=== PATIENT | female | born 1975 | race Caucasian/White ===

== ENCOUNTER 2024-01-13 14:22 | Outpatient (AMB) | payer OTHER, SELFPAY ==
--- NOTE | 2024-01-13 14:32 | A.OFFVIS_ITS ---
Vital Signs 01/13/24 14:33 Height 5 ft 9 in Weight 319 lb 10.724 oz BMI 47.2 BP 130/80 Blood Pressure Location Rt brachial Position Sitting Pulse 93 Pulse Source Pulse Oximeter Intake Visit Reasons: Thyroid cancer-confirmed Intake Note: New Patient presents today to established treatment for Thyroid cancer. 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 She was followed up to 2014 with negative neck ultrasounds and undetectable thyroglobulin. She is currently on levothyroxine 300 mcg q.d. [facility] Medical History (Updated 01/13/24 @ 14:55 by GEOFF Infante) Hx of hyperlipidemia Hx of migraines Hx of essential hypertension Hx of diabetes mellitus Hurthle cell carcinoma of thyroid Surgical History (Updated 01/13/24 @ 14:35 by GEOFF Infante) Hx of bilateral breast reduction surgery Hx of partial thyroidectomy Family History (Updated 01/13/24 @ 14:41 by GEOFF Infante) Father No problems noted. Mother No problems noted. Maternal Grandfather Heart disease Social History (Updated 01/13/24 @ 14:35 by GEOFF Infante) Alcohol intake: current Alcohol intake frequency: holidays/special occasions only Patient Tobacco Use Status: Former Tobacco user Physical Exam Vital Signs: Last Vital Signs Pulse 93 01/13/24 14:33 BP 130/80 01/13/24 14:33 BMI result Body Mass Index 47.2 Const Other: Healed scar status post thyroidectomy. There is no cervical adenopathy palpated Assessment & Plan Assessment & Plan (1) Hurthle cell carcinoma of thyroid: Code(s): C73 - Malignant neoplasm of thyroid gland Category: Medical Plan: This is a 48-year-old white female history of Hurthle cell carcinoma of the thyroid status post total thyroidectomy with iodine 131 ablation previously with negative neck ultrasounds and undetectable thyroglobulin. Plan is to recheck TSH, free T4 along with thyroglobulin. Will also have patient follow up with Dr. Guan will be coming to this practice in February 2024 is expert thyroid ultrasound to perform a neck ultrasound Orders: Orders Free T4 (Free Thyroxine) Today C73 - Malignant neoplasm of thyroid gland Thyroid Stimulating Hormone Today C73 - Malignant neoplasm of thyroid gland Thyroglobulin Tumor Marker Today C73 - Malignant neoplasm of thyroid gland Coding Level of Care Code Est Pt Level 3 (12675) Diagnoses Hurthle cell carcinoma of thyroid C73
[2024-01-13 14:33] VITALS: BP 130/80; PULSE 93; BMI 47.2
== END 2024-01-13 15:10 | disposition home or self-care (01) ==
PROVIDERS: PCP Internal Medicine; Visit Provider Internal Medicine Endocrinology, Diabetes & Metabolism
DX: C73 Malignant neoplasm of thyroid gland (principal)
CPT/HCPCS: 99213

== ENCOUNTER → 2024-01-13 14:22 | Outpatient (BNVA) | payer OTHER, SELFPAY | PROVIDERS: PCP Internal Medicine; Visit Provider Internal Medicine Endocrinology, Diabetes & Metabolism ==

== ENCOUNTER 2024-01-18 11:27 | Outpatient (REF) | payer OTHER, SELFPAY ==
[2024-01-18 13:46] LABS: Free T4 (Free Thyroxine) 1.32 ng/dL (0.71-1.85); Thyroid Stimulating Hormone 0.03 uIU/mL (0.32-4.0)
[2024-01-21 07:14] LABS: Thyroglobulin Antibody <1 IU/mL (<=1); Thyroglobulin Level <0.1 ng/mL
== END 2024-01-18 11:28 | disposition home or self-care (01) ==
LOC: HO.HMGCLDS 11:27
PROVIDERS: PCP Internal Medicine; Visit Provider Internal Medicine Endocrinology, Diabetes & Metabolism
DX: C73 Malignant neoplasm of thyroid gland (principal)
CPT/HCPCS: 36415; 84432; 84439; 84443; 86800

== ENCOUNTER 2024-05-13 16:28 | Outpatient (REF) | payer OTHER, SELFPAY ==
[2024-05-13 20:31] LABS: Free T4 (Free Thyroxine) 1.33 ng/dL (0.71-1.85); Thyroid Stimulating Hormone 2.17 uIU/mL (0.32-4.0)
== END 2024-05-13 16:29 | disposition home or self-care (01) ==
LOC: HO.LAB 16:28
PROVIDERS: PCP Internal Medicine; Visit Provider Internal Medicine Endocrinology, Diabetes & Metabolism
DX: C73 Malignant neoplasm of thyroid gland (principal)
CPT/HCPCS: 36415; 84439; 84443

== ENCOUNTER 2024-05-15 07:56 | Outpatient (AMB) | payer OTHER, SELFPAY ==
[2024-05-15 07:59] VITALS: BP 124/82; PULSE 69; BMI 48.9
--- NOTE | 2024-05-15 07:59 | A.OFFVIS_ITS ---
Vital Signs 3 05/15/24 07:59 Height 5 ft 9 in Weight 331 lb 2.149 oz BMI 48.9 BP 124/82 Blood Pressure Location Rt brachial Position Sitting Pulse 69 Pulse Source Pulse Oximeter Intake Visit Reasons: f/u Thyroid Cancer-conf Intake Note: Patient present today for Thyroid Cancer follow up visit. Hand Brush Filler Required: No Accompanied by: Self / Same As Patient Allergies No Known Allergies Allergy (Verified 05/15/24 08:02) Medication List - Last Reconciled 05/15/24 by Liz Guan MD empagliflozin (Jardiance) 25 mg PO DAILY levonorgestrel (Mirena) intrauterine levothyroxine 50 mcg PO DAILY levothyroxine 200 mcg PO DAILY losartan 100 mg PO DAILY meclizine 25 mg PO DAILY PRN omeprazole magnesium (Prilosec OTC) 20 mg PO DAILY sumatriptan succinate 100 mg PO Q2-4H PRN tirzepatide (Mounjaro) 5 mg subcut QWEEK HPI Comments Details: 48-year-old female coming in today follow up ofHurthle cell carcinoma diagnosed in 2005 status post total thyroidectomy, 100 mCi of I 131 radioactive iodine treatment in 2005. Very little initial information available to determine initial TOMA risk would at least intermediate risk of recurrence based on Hurthle cell pathology and AJCC stage I, however per chart review most recently has been TOMA excellent response to therapy. 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 Status post total thyroidectomy, diagnosed with Hurthle cell carcinoma 4 X 4 X 3 cm, status post 100 mCi of I 131 radioactive iodine treatment 2007: 01/16/2007: Whole-body scan with no abnormal focus noted 2008: CT soft tissue neck: Several abnormal appearing cervical lymph nodes, largest left jugulodigastric region measuring 60 next 9 mm 2013: Labs TSH 20.87, free T4 1.13, TG less than 1, TG antibody undetectable July 2013: Ultrasound neck showed no abnormal lymph nodes, showed multiple normal looking lymph nodes bilaterally. 2014: Ultrasound neck: Showed normal lymph nodes She was on levothyroxine 300 mcg daily up until 01/22/2024, when TSH noted to be 0.03 with free T4 of 1.34. Thyroglobulin less than 0.1, with TG antibody undetectable. Levothyroxine was reduced to 250 mcg subsequently. Currenlty on levothyroxine 250 mcg daily ( 200 plus 50 mcg pills), taking it appropriately No palpitations, no tremors . Recently a bit more constipated. Now reporting somewhat decreased energy. Has lost 6 lbs over April 2024 but started Mounajaro 2.5 mg weekly dose and plan to titrate up to 5 mg weekly in May 2024 No compressive symptoms Physical exam General: sitting comfortably in no acute distress HEENT: normocephalic/atraumatic, moist oral mucosa Neck: supple, symmetrical, palpable 0.[address] , no other lymph nodes or masses Cardiac: normal heart sounds Pulm: normal breath sounds B/L, no added breath sounds Abd: not distended, no tenderness Extremities: no edema, no signs of myxedema Laboratory Tests 01/18/24 05/13/24 11:32 16:42 TSH 0.03 L 2.17 Free T4 1.32 1.33 Thyroglobulin <0.1 Thyroglobulin Antibody <1 PFSH Medical History (Updated 05/15/24 @ 08:50 by Liz Guan MD) Hypothyroidism Hx of hyperlipidemia Hx of migraines Hx of essential hypertension Hx of diabetes mellitus Hurthle cell carcinoma of thyroid Surgical History (Updated 01/13/24 @ 14:35 by GEOFF Infante) Hx of bilateral breast reduction surgery Hx of partial thyroidectomy Family History Father No problems noted. Mother No problems noted. Maternal Grandfather Heart disease Social History (Updated 01/13/24 @ 14:35 by GEOFF Infante) Alcohol intake: current Alcohol intake frequency: holidays/special occasions only Patient Tobacco Use Status: Former Tobacco user Assessment & Plan Assessment & Plan (1) Hurthle cell carcinoma of thyroid: Code(s): C73 - Malignant neoplasm of thyroid gland Category: Medical Plan: 48-year-old female coming in today follow up of Hurthle cell carcinoma 4 cm diagnosed in 2005 status post total thyroidectomy, 100 mCi of I 131 radioactive iodine treatment in 2005. Very little initial information available with no pathology report in the system to determine initial TOMA risk would at least be intermediate risk of recurrence based on Hurthle cell pathology and AJCC stage I, now TOMA excellent response to therapy based on undetectable thyroglobulin tumor markers over the years and unremarkable neck ultrasounds.. Patient says she has not had a neck ultrasound in a while, the last 1 I see in the system is from 2014 which was unremarkable. Blood work from January 2024 showed TG less than 0.1, undetectable TG antibodies which are again reassuring. I will order an ultrasound of the neck. Given that she is 18 years out of her diagnosis, this is very reassuring especially once patients are hitting the 20 year thompson with no recurrence. Given excellent response to therapy, her TOMA goal is 0.5-2. Her TSH is at 2.7 most recently from May 2024, which is just around the goals so I will keep her on the same dose of levothyroxine 250 mcg daily for now. She was just recently started on Mounjaro, that could possibly affect the absorption of levothyroxine, if her TSH climbs up, I will increase the dose of levothyroxine. Given no personal or family history of medullary thyroid cancer, it is safe for her to be on Mounjaro and I agree with her being on this medication which can be titrated up by her primary care physician for management of her type 2 diabetes mellitus and weight management. Plan: -ordered TSH, free T4 to be repeated in 4 weeks -continue levothyroxine 250 mcg daily -we will plan to repeat TG and TG antibodies along with TFTs in January 2024 -ordered ultrasound of the neck -follow up in 6 months (2) Hypothyroidism: Code(s): E03.9 - Hypothyroidism, unspecified Category: Medical Qualifiers: Hypothyroidism type: postoperative Qualified Code(s): E89.0 - Postprocedural hypothyroidism Plan: Given excellent response to therapy, her TOMA goal is 0.5-2. Her TSH is at 2.7 most recently from May 2024, which is just around the goals so I will keep her on the same dose of levothyroxine 250 mcg daily for now. She was just recently started on Mounjaro, that could possibly affect the absorption of levothyroxine, if her TSH climbs up, I will increase the dose of levothyroxine. Plan: -ordered TSH, free T4 to be repeated in 4 weeks -continue levothyroxine 250 mcg daily Plan I spent 30 minutes in reviewing the record, seeing the patient and documenting in the medical record. 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
== END 2024-05-15 08:38 | disposition home or self-care (01) ==
LOC: HO.ENCR 07:57
PROVIDERS: PCP Internal Medicine; Visit Provider Student in an Organized Health Care Education/Training Program
DX: C73 Malignant neoplasm of thyroid gland (principal); E89.0 Postprocedural hypothyroidism
CPT/HCPCS: 99214

== ENCOUNTER 2024-06-03 14:42 | Outpatient (REF) | payer OTHER, SELFPAY ==
--- NOTE | ~2024-06-03 | US_ITS ---
EXAMINATION: US cervical region. CLINICAL INFORMATION: Malignant neoplasm of the thyroid COMPARISON: None available at the time of this dictation. TECHNIQUE: High-frequency linear transducer ultrasound utilized, area of interest scanned, cervical triangles. FINDINGS: No ultrasound evidence of soft tissue mass, cyst or abscess, or abnormal distortion. There are scattered normal-sized bilateral cervical lymph nodes imaged, none of which appear to be enlarged or has abnormal cortical thickening. US/US soft tiss head and/or neck IMPRESSION: No ultrasound evidence of cervical lymphadenopathy. *Ultrasound has limited sensitivity detecting some of the solid soft tissue lesions; if signs and/or symptoms persist, cross-sectional imaging, preferably MRI with IV contrast, recommended. Electronically signed by: Ketty Cleary MD 06/04/2024 10:36 AM HARINI SPEAR
== END 2024-06-03 14:43 | disposition home or self-care (01) ==
LOC: HO.US 14:42
PROVIDERS: PCP Internal Medicine; Visit Provider Student in an Organized Health Care Education/Training Program
DX: C73 Malignant neoplasm of thyroid gland (principal)
CPT/HCPCS: 76536

== ENCOUNTER 2024-11-12 16:37 | Outpatient (REF) | payer OTHER, SELFPAY ==
--- OUTSIDE RECORDS SUMMARY | 2024-11-12 16:39 | XMS_ITS | Clinical Summary ---
Author Organization [facility] [address] [facility] Address [address], [place] Phone Care Team Providers Care Account Specialist Name Role Phone Maria Jonhson MD Primary Care Provider [phone] Allergies No known active allergies Medications meclizine (ANTIVERT) 25 mg tablet Take 1 tablet by mouth 4 times daily as needed for Other (dizziness) for up to 7 days. 06/11/20 21 Active ondansetron (ZOFRAN) 4 mg tablet Take 1 tablet by mouth every 8 hours as needed for Nausea for up to 7 days. 07/10/19 22 Active SUMAtriptan (IMITREX) 100 mg tablet Take 1 tablet for headache, May repeat dose once after 2 hours, if needed. 06/07/20 23 Active omeprazole magnesium (PRILOSEC OTC ORAL) Take 1 Tablet by mouth daily. Prn reflux Active Synthroid 200 mcg tablet 04/01/20 24 Active spironolactone (ALDACTONE) 100 mg tablet Take 2 tablets (200 mg total) by mouth 1 (one) time each day. 08/31/19 25 Active empagliflozin (Jardiance) 25 mg tablet Take 1 tablet (25 mg total) by mouth 1 (one) time each day. 90 tablet 1 09/29/19 25 Active losartan (COZAAR) 100 mg tablet TAKE 1 TABLET DAILY 90 tablet 1 11/10/19 25 Active tirzepatide (Mounjaro) 7.5 mg/0.5 mL injectionIndic ations:Type 2 diabetes mellitus with other specified complication, without long-term current use of insulin ([facility] V24, [facility] V28) Inject 0.5 mL (7.5 mg total) under the skin every 7 (seven) days. 3 mL 2 11/11/19 25 Active losartan (COZAAR) 100 mg tablet Take 1 Tablet by mouth daily. 06/04/20 23 025 Discontinued Mounjaro 7.5 mg/0.5 mL injectionIndic ations:Type 2 diabetes mellitus with other specified complication, without long-term current use of insulin ([facility] V24, [facility] V28) INJECT 1 PEN UNDER THE SKIN EVERY 7 (SEVEN) DAYS. 3 mL 2 08/12/19 25 025 Discontinued(Re order) Active Problems Problem Noted Date Diagnosed Date Primary hypertension 02/21/2023 Elevated blood pressure reading 07/10/2021 Diabetes mellitus ([facility] V24, [facility] V28) 03/2019 Overview (04/29/2024): Hemoglobin A1c 6.6% on 03/28/2019. 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 Varicose veins of both lower extremities 017 Encounters Date Type Department Care Team Description 09/01/2024 7:30 AM EST Office Visit Adult Medicine [address] [phone] Maria Johnson MD Type 2 diabetes mellitus with other specified complication, without long-term current use of insulin ([facility] V24, [facility] V28) (Primary Dx); Primary hypertension; Mixed hyperlipidemia from Last 3 Months Immunizations Name Administration Dates Next Due Pneumococcal polysaccharide 23 valent (Pneumovax 23) 2yo and older 04/15/2019 Tdap Tetanus diptheria acell ular pertussis (Boostrix; Adacel) 7yo and older 10/17/2017 Surgical History Surgery Date Site/Laterality Comments THYROIDECTOMY 2005 PROCEDURE: HISTORICAL TOTAL THYROIDECTOMY OTHER SURGICAL HISTORY 2009 PROCEDURE: ---- OTHER ----; COMMENT: breast reduction MULTIPLE TOOTH EXTRACTIONS PROCEDURE: HISTORICAL DENTAL EXTRACTION Medical History Medical History Date Comments Hyperlipidemia 10/17/2017 DX:Hyperlipidemi a; COMMENT: Total cholesterol 216, triglycerides 336, 04/18/2017 Family History Medical History Relation Name Comments Hypertension Mother Relation Name Status Comments Father Alive Mother Alive Social History Tobacco Use Types Packs/Day Years Used Date Smoking Tobacco: Never Passive Smoke Exposure: Never Smokeless Tobacco: Never Tobacco Cessation:Counseling Given: Not Answered Alcohol Use Standard Drinks/Week Comments Yes 0 (1 standard drink = 0.6 oz pur e alcohol) Housing Instability Answer Date Recorde d Are you worried that in the next 2 months you may not have stable housing? No 08/31/2024 Food Access & Nutrition Answer Date Rec orded Do you have access to a vari ety of food including fruits and vegetables? Yes 08/31/2024 Access to Healthcare Answer Date Record ed Within the last 3 months, ho w many times did you visit the emergency department for your medical care? 0 08/31/2024 Health Literacy Answer Date Recorded How often do you need to hav e someone help you when you read instructions, pamphlets, or other written material from your doctor or pharmacy? Never 08/31/2024 Caregiver: How often do you need to have someone help you when you read instructions, pamphlets, or other written material from your doctor or pharmacy? Not on file 08/31/2024 Financial Risk Answer Date Recorded How hard is it for you to pa y for the very basics like food, housing, medical care, and air conditioning / heating? Not very hard 08/31/2024 Transportation Answer Date Recorded Has the lack of transportati on kept you from meetings, work, or from getting things needed for daily living? No Has the lack of transportati on kept you from medical appointments or from getting medications? No 08/31/2024 Social Isolation Answer Date Recorded How often do you feel lonely or isolated from th ose around you? Never 08/31/2024 Food Risk Answer Date Recorded Within the past 12 months we worried whether our food would run out before we got money to buy more. Never true 08/31/2024 Within the past 12 months th e food we bought just didn't last and we didn't have money to get more. Never true 08/31/2024 Dependent Care Answer Date Recorded Do you need help finding or paying for care for your loved ones. For example, childcare aide or elderly care for an older adult? No 08/31/2024 Education Answer Date Recorded Do you think completing more education or training, like finishing a GED, going to college, or learning a trade, would be helpful for you? No 08/31/2024 Employment and Income Answer Date Recor ded During the last four weeks, have you been actively looking for work? No 08/31/2024 Living Situation Answer Date Recorded What is your living situation? 0 08/31/2024 Comments No Sex and Gender Information Value Date Recorded Sex Assigned at Female 09/28/2024 10:05 AM EDT Legal Sex Female 4:08 PM EST Gender Identity Female 09/28/2024 10:05 AM EDT Sexual Orientation Straight 09/28/2024 10 :05 AM EDT Obstetrics History Last Filed Vital Signs Vital Sign Reading Time Taken Comments Blood Pressure 118/64 09/01/2024 7:38 AM EST Pulse 76 09/01/2024 7:38 AM EST Temperature 36.4 ??C (97.5 ??F) 09/01/2024 7:38 AM ES T Respiratory Rate 16 09/01/2024 7:38 AM EST Oxygen Saturation - - Inhaled Oxygen Concentration - - Weight 138 kg (305 lb) 09/01/2024 7:38 AM EST Height 175.3 cm (5' 9 ) 09/01/2024 7:38 AM EST Body Mass Index 45.04 09/01/2024 7:38 AM EST Plan of Treatment Upcoming Encounters Date Type Department Care Team (Late st Contact Info) Description 12/08/2024 3:30 PM EDT Office Visit Adult Medicine [address] [phone] Maria Johnson MD [address] [place] [address] Health Maintenance Due Date Last Done Comments Diabetes: Annual Foot Exam 1983 Hepatitis B Vaccines (1 of 3 - 19+ 3-dose series) 1992 Zoster Vaccines (1 of 2) 1992 Pneumococcal Vaccine: 50+ Years (2 of 2 - PCV) 04/15/2020 04/15/2019 Pneumococcal Vaccine: Pediatrics (0 to 5 Years) and At-Risk Patients (6 to 64 Years) (2 of 2 - PCV) 04/15/2020 04/15/2019 Colorectal Cancer Screening: Colonoscopy 06/16/2022 HIV Screening 06/16/2022 Hepatitis C Screening 06/16/2022 COVID-19 Vaccine ( season) 2024 06/07/2021, 10/06/2020, 09/15/2020 Colorectal Cancer Screening: Sigmoidoscopy 09/04/2024 Diabetes: Annual Retina Eye Exam 09/11/2024 09/12/2023 Diabetes: Blood Sugar Control Test (HGBA1C) 02/25/2025 08/28/2024, 05/27/2024, 03/23/2024, Additional history exists Influenza Vaccine (Season Ended) 2025 Breast Cancer Screening 08/19/2025 08/19/2024, 08/19 Diabetes: Annual GFR (Glomerular Filtration Rate) 08/28/2025 08/28/2024, 05/27/2024, 03/23/2024, Additional history exists Hypertension/CHF/CAD Annual BMP Blood Test 08/28/2025 08/28/2024, 05/27/2024, 03/23/2024, Additional history exists Depression Screening 08/31/2025 08/31/2024 Social Influencers of Health Screening 08/31/2025 08/31/2024 Diabetes: Annual Urine Albumin-Creatinine Ratio (uACR) 10/19/2025 10/19/2024, 08/29/2023 Cervical Cancer Screening: Pap Smear 02/01/2026 02/01/2023 DTaP,Tdap,and Td Vaccines (2 - Td or Tdap) 10/18/2027 10/17/2017 Cholesterol Screening (Lipid Panel) 08/28/2029 08/28/2024, 05/27/2024, 08/29/2023 HIB Vaccines Aged Out No longer eligi ble based on patient's age to complete this topic HPV Vaccines Aged Out No longer eligi ble based on patient's age to complete this topic Hepatitis A Vaccines Aged Out No long er eligible based on patient's age to complete this topic IPV Vaccines Aged Out No longer eligi ble based on patient's age to complete this topic MMR Vaccines Aged Out No longer eligi ble based on patient's age to complete this topic Meningococcal ACWY Vaccine Aged Out N o longer eligible based on patient's age to complete this topic Meningococcal B Vaccine Aged Out No l onger eligible based on patient's age to complete this topic RSV Immunization Patients Under 20 months Aged Out No longer eligible based on patient's age to complete this topic Varicella Vaccines Aged Out No longer eligible based on patient's age to complete this topic Procedures Procedure Name Priority Date/Time Associated Diagnosis Comments MICROALBUMIN CREATININE URINE RATIO Routine 10/19/2024 4:45 PM EDT Type 2 diabetes mellitus with other specified complication, without long-term current use of insulin ([facility] V24, [facility] V28) HEMOGLOBIN A1C Routine 08/28/2024 1:59 PM EST Type 2 diabetes mellitus with other specified complication, without long-term current use of insulin (CMS/HCC V24, [facility] V28) COMPREHENSIVE METABOLIC PANEL Routine 08/28/2024 1:59 PM EST Type 2 diabetes mellitus with other specified complication, without long-term current use of insulin (CMS/HCC V24, CMS/HCC V28) LIPID PANEL WITH REFLEX TO DIRECT LDL Routine 08/28/2024 1:59 PM EST Type 2 diabetes mellitus with other specified complication, without long-term current use of insulin (CMS/HCC V24, [facility] V28) EXTERNAL MAMMOGRAM REPORT Routine 08/19/2024 10:24 AM EST HM DIABETES EYE EXAM Routine 09/12/2023 HM PAP SMEAR Routine 02/01/2023 from Last 3 Months or Most Recently Relevant to Health Maintenance Results * Microalbumin creatinine urine ratio (10/19/2024 4:45 PM EDT) Creatinine, Urine 57.0 mg/dL LAB CHEMISTRY METHOD 10/19/2024 7:51 PM EDT [facility] Microalb, Ur <5.0 0.0 - 29.0 mg/L LAB CHEMISTRY METHOD 10/19/2024 7:51 PM EDT [facility] Microalb/Creat Ratio <9 <30 mg/g creat LAB CHEMISTRY METHOD 10/19/2024 7:51 PM EDT [facility] Urine Urine specimen obtained by clean catch procedure / Unknown Non-blood Collection / Unknown 10/19/2024 4:45 PM EDT 10/19/2024 4:45 PM EDT us Maria Johnson MD LAB URINE ORDERABLES Final Resul t [facility] [address] [place] [address], * (ABNORMAL) Lipid panel with reflex to direct LDL (08/28/2024 1:59 PM EST) Cholesterol 204(H) 0 - 200 mg/dL LAB CHEMISTRY METHOD 08/28/2024 5:33 PM EST [facility] Triglycerides 303(H) 0 - 150 mg/dL LAB CHEMISTRY METHOD 08/28/2024 5:33 PM EST [facility] HDL 43 >=40 mg/dL LAB CHEMISTRY METHOD 08/28/2024 5:33 PM EST [facility] LDL Calculated 100 0 - 100 mg/dL LAB CHEMISTRY METHOD 08/28/2024 5:33 PM EST [facility] VLDL Cholesterol Dylan 60.6 mg/dL LAB CHEMISTRY METHOD 08/28/2024 5:33 PM EST [facility] Non HDL Chol. (LDL+VLDL) 161(H) <145 mg/dL LAB CHEMISTRY METHOD 08/28/2024 5:33 PM EST [facility] Chol/HDL Ratio 4.7(H) 0.0 - 4.4 LAB CHEMISTRY METHOD 08/28/2024 5:33 PM EST [facility] Blood Venous blood specimen / Unknown Venipuncture / Unknown 08/28/2024 1:59 PM EST 08/28/2024 1:59 PM EST us Maria Johnson MD LAB BLOOD ORDERABLES Final Resul t Performing Organization Address City/[facility]/ZIP Co de Phone Number [facility] [address] [place] [address], [place] [phone] * (ABNORMAL) Hemoglobin A1c (08/28/2024 1:59 PM EST) Hemoglobin A1C 6.8(H) <6.5 % LAB CHEMISTRY METHOD 08/28/2024 9:03 PM EST [facility] Mean Bld Glu Estim. 148 mg/dL LAB CHEMISTRY METHOD 08/28/2024 9:03 PM EST [facility] Blood Venous blood specimen / Unknown Venipuncture / Unknown 08/28/2024 1:59 PM EST 08/28/2024 1:59 PM EST us Maria Johnson MD LAB BLOOD ORDERABLES Final Resul t [facility] [address] [place] [address], [place] [phone] * (ABNORMAL) Comprehensive metabolic panel (08/28/2024 1:59 PM EST) Sodium 135 133 - 145 mmol/L LAB CHEMISTRY METHOD 08/28/2024 5:30 PM [facility] Potassium 4.6 3.5 - 5.5 mmol/L LAB CHEMISTRY METHOD 08/28/2024 5:30 PM [facility] Chloride 102 96 - 110 mmol/L LAB CHEMISTRY METHOD 08/28/2024 5:30 PM [facility] CO2 25 21 - 32 mmol/L LAB CHEMISTRY METHOD 08/28/2024 5:30 PM [facility] Anion Gap 8 3 - 11 LAB CHEMISTRY METHOD 08/28/2024 5:30 PM [facility] Glucose 167(H) 70 - 100 mg/dL LAB CHEMISTRY METHOD 08/28/2024 5:30 PM [facility] BUN 25 5 - 25 mg/dL LAB CHEMISTRY METHOD 08/28/2024 5:30 PM [facility] Creatinine 1.05 0.50 - 1.10 mg/dL LAB CHEMISTRY METHOD 08/28/2024 5:30 PM [facility] eGFR 64 >=60 mL/min/1. 73m2 LAB CHEMISTRY METHOD 08/28/2024 5:30 PM [facility] Comment:Calculation based on the??Chronic Kidney Disease Epidemiology Collaboration (CKD-EPI) equation refit??without adjustment for race. BUN/Creatinine Ratio 23.8 LAB CHEMISTRY METHOD 08/28/2024 5:30 PM [facility] Calcium 10.0 8.5 - 10.5 mg/dL LAB CHEMISTRY METHOD 08/28/2024 5:30 PM [facility] AST (SGOT) 15 10 - 42 unit/L LAB CHEMISTRY METHOD 08/28/2024 5:30 PM [facility] ALT (SGPT) 33 10 - 60 unit/L LAB CHEMISTRY METHOD 08/28/2024 5:30 PM [facility] Alkaline Phosphatase 89 42 - 121 unit/L LAB CHEMISTRY METHOD 08/28/2024 5:30 PM [facility] Total Protein 7.8 6.0 - 8.0 g/dL LAB CHEMISTRY METHOD 08/28/2024 5:30 PM EST [facility] Albumin 4.1 3.2 - 5.0 g/dL LAB CHEMISTRY METHOD 08/28/2024 5:30 PM EST [facility] Total Bilirubin 0.7 0.0 - 1.4 mg/dL LAB CHEMISTRY METHOD 08/28/2024 5:30 PM EST [facility] Blood Venous blood specimen / Unknown Venipuncture / Unknown 08/28/2024 1:59 PM EST 08/28/2024 1:59 PM EST Maria Johnson MD LAB BLOOD ORDERABLES Final Resul t [facility] [address] [place] [address], * External Mammogram Report (08/19/2024 10:24 AM EST) Anatomical Region Laterality Modality Mammography Historical Provider IMG BI PROCEDURES Final R esult * Diabetes Eye Exam (09/12/2023) Pathologist [facility] Diabetes: Annual Retina Eye Exam Abstracted Adalgisa Agrawal MD HEALTH MAINTENANCE Final Result * Pap Smear (02/01/2023) Pathologist [facility] Pap smear No Interpretation , Abstracted Historical Provider HEALTH MAINTENANCE Final Result from Last 3 Months or Most Recently Relevant to Health Maintenance Insurance [facility] Care Teams Account Specialist Relationship Specialty Start Date End Date Maria Johnson MD [address] [place] [address] [phone] PCP - General Internal Medicine 10/19/24
--- OUTSIDE RECORDS SUMMARY | 2024-11-12 16:39 | XMS_ITS | Patient Health Record ---
Author Organization [employer] [facility] Address [address] [place] [address] Care Team Providers Care It Consulting Manager Name Role Phone Jhonatan Brock Primary Care Provider Unav ailable Black, Anum Unavailable [phone] Allergies Allergen (clinical drug ingredient) Drug/Non Drug Allergy documented on EMR Reaction Allergy Type Onset Date Status Anesthesia S/I-40 Unknown Drug Allergy Active codeine Codeine nausea Drug Allergy Active Reason For Referral No Information Medications Medication SIG (Take, Route, Frequency, Duration) Notes Start Date End Date Status zzzCompression Stockings 20-30mm Hg . . . for . Active Synthroid Not-Taking zzzCompression Stockings 20-30mm Hg . . . for . Not-Taking metFORMIN HCl 500 MG 1 tablet with a jim l Orally Once a day for 30 day(s) Not-Taking glipiZIDE XL Active Levothyroxine Sodium 125 MCG 1 tablet in the morning on an empty stomach Orally Once a day for 30 day(s) Active Eliquis Not-Taking Multivitamin - 1 tablet Orally Once a day for 30 day(s) Not-Taking Alpha Lipoic Acid 200 MG 1 capsule Orall y Once a day for 30 day(s) 10/12/2022 Active Policosanol 10 MG as directed Orally Not-Taking PriLOSEC OTC 20 MG 1 tablet 30 minutes before morning meal Orally Once a day for 30 day(s) Active Grape Seed Extract N ot-Taking Immunizations Vaccine Route Administration Date Status Comme nts COVID-19 Pfizer BioNTech Vaccine Unknown 10/06/2020 Adm inistered 09/16/20 Influenza Unknown 10/12/2022 Refused Social History Tobacco Use: Social History Observation Description Date Details (start date - stop date) Never Smoker NA - NA Tobacco Use/Smoking Question Answer Notes Are you a: nonsmoker Additional Findings: Tobacco Non-User Aggressive non-smoker Tobacco use other than smoking: Question Answer Notes Are you an other tobacco user? No Problems Problem Type SNOMED Code ICD Code Onset Dates Problem Status W/U Status Risk Notes Problem Acquired hammer toe of right foot (5349182745721245 ) Other hammer toe(s) (acquired), right foot (M20.41) Active confirmed Problem Acquired hammer toe of left foot (5605272079835833 ) Other hammer toe(s) (acquired), left foot (M20.42) Active confirmed Problem Polyneuropathy due to type 2 diabetes mellitus (140617962) Type 2 diabetes mellitus with diabetic polyneuropathy (E11.42) Active confirmed Problem 40461065 Venous insufficiency (I87.2) Active confirmed Plan Of Treatment Pending Test Test Name Order Date 49677-[id number] SKIN LESIONS, OVER 4 03/14/20 21 13951-VNPM SKIN LESIONS, OVER 4 10/14/19 22 06314-YONC SKIN LESIONS, OVER 4 10/13/19 23 30541-UQPE NAIL(S) 10/12/2022 57214-[id number] NAIL(S) 10/13/2021 55110-[id number] NAIL(S) 03/14/2021 Insurance Providers Payer Name Payer Address Payer Phone Subscriber Number Group Number Insured Name Patient Relationship to Insured Coverage Start Date Coverage End Date [facility] [address] [place] [id number] Pily Arias Self - patient is the insured Medical (General) History Medical History History ICD Code thyroid cancer type II diabetes Headaches Numbness Reflux ( GERD) Hyperlipidemia Hypothyroidism Surgical History Surgery Date(Month/Year) thyroidectomy total & 05/2006 breast reduction 2010 vein surgery 09/2021
[2024-11-12 18:09] LABS: Free T4 (Free Thyroxine) 1.32 ng/dL (0.71-1.85); Thyroid Stimulating Hormone 0.43 uIU/mL (0.32-4.0)
[2024-11-13 18:43] LABS: Thyroglobulin <0.1 ng/mL; Thyroglobulin Antibodies <1 IU/mL (< or = 1)
[2024-11-16 04:49] LABS: Thyroglobulin Antibody <1 IU/mL (<=1); Thyroglobulin Level <0.1 ng/mL
== END 2024-11-12 16:38 | disposition home or self-care (01) ==
LOC: HO.LAB 16:37
PROVIDERS: PCP Internal Medicine; Visit Provider Student in an Organized Health Care Education/Training Program
DX: E89.0 Postprocedural hypothyroidism (principal); C73 Malignant neoplasm of thyroid gland
CPT/HCPCS: 36415; 84432; 84439; 84443; 86800

== ENCOUNTER 2024-11-13 07:58 | Outpatient (AMB) | payer OTHER, SELFPAY ==
[2024-11-13 07:59] VITALS: BP 102/72; PULSE 80; O2SAT 97; BMI 44.6
--- NOTE | 2024-11-13 07:59 | MHC.OFFVIS ---
Vital Signs 11/13/24 07:59 Height 5 ft 9 in Weight 302 lb 4.06 oz BMI 44.6 BP 102/72 Blood Pressure Location Lt brachial Position Sitting Pulse 80 Pulse Source Pulse Oximeter Pulse Oximetry (%) 97 Oxygen Delivery Method Room Air Intake Visit Reasons: f/u Thyroid Cancer Intake Note: Patient present today for Thyroid Cancer follow up visit. 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 Very little initial information available to determine initial TOMA risk would at least intermediate risk of recurrence based on Hurthle cell pathology and AJCC stage I, however per chart review most recently has been TOMA excellent response to therapy. 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 Status post total thyroidectomy, diagnosed with Hurthle cell carcinoma 4 X 4 X 3 cm, status post 100 mCi of I 131 radioactive iodine treatment 2007: 01/16/2007: Whole-body scan with no abnormal focus noted 2008: CT soft tissue neck: Several abnormal appearing cervical lymph nodes, largest left jugulodigastric region measuring 60 next 9 mm 2014: Labs TSH 20.87, free T4 1.13, TG less than 1, TG antibody undetectable July 2013: Ultrasound neck showed no abnormal lymph nodes, showed multiple normal looking lymph nodes bilaterally. 2015: Ultrasound neck: Showed normal lymph nodes She was on levothyroxine 300 mcg daily up until 01/22/2024, when TSH noted to be 0.03 with free T4 of 1.34. Thyroglobulin less than 0.1, with TG antibody undetectable. Levothyroxine was reduced to 250 mcg subsequently. Interval history 06/03/2024: Ultrasound of the neck did not show any abnormal lymph nodes 05/13/2024: TSH 2.17, free T4 1.33 11/12/2024: TSH 0.43, free T4 1.32, tumor markers pending Currenlty on levothyroxine 250 mcg daily ( 200 plus 50 mcg pills), taking it appropriately No palpitations, no tremors . Bowel movements are variable Has lost 30 lbs in the past 6 months but 68 lbs total since the past year , on Mounjaro 7.5 mg weekly No compressive symptoms Physical exam General: sitting comfortably in no acute distress HEENT: normocephalic/atraumatic, moist oral mucosa Neck: supple, symmetrical, no lymph nodes or masses Cardiac: normal heart sounds Pulm: normal breath sounds B/L, no added breath sounds Abd: not distended, no tenderness Extremities: no edema, no signs of myxedema Laboratory Tests 01/18/24 05/13/24 11:32 16:42 TSH 0.03 L 2.17 Free T4 1.32 1.33 Thyroglobulin <0.1 Thyroglobulin Antibody <1 Laboratory Tests 05/13/24 11/12/24 16:42 16:53 TSH 2.17 0.43 Free T4 1.33 1.32 US cervical region. 06/03/24 CLINICAL INFORMATION: Malignant neoplasm of the thyroid COMPARISON: None available at the time of this dictation. TECHNIQUE: High-frequency linear transducer ultrasound utilized, area of interest scanned, cervical triangles. FINDINGS: No ultrasound evidence of soft tissue mass, cyst or abscess, or abnormal distortion. There are scattered normal-sized bilateral cervical lymph nodes imaged, none of which appear to be enlarged or has abnormal cortical thickening. US/US soft tiss head and/or neck IMPRESSION: No ultrasound evidence of cervical lymphadenopathy. [facility] Medical History (Updated 05/15/24 @ 08:50 by Liz Guan MD) Hypothyroidism Hx of hyperlipidemia Hx of migraines Hx of essential hypertension Hx of diabetes mellitus Hurthle cell carcinoma of thyroid Surgical History Hx of bilateral breast reduction surgery Hx of partial thyroidectomy Family History Father No problems noted. Mother No problems noted. Maternal Grandfather Heart disease Social History Alcohol intake: current Alcohol intake frequency: holidays/special occasions only Patient Tobacco Use Status: Former Tobacco user Assessment & Plan Assessment & Plan (1) Hurthle cell carcinoma of thyroid: Code(s): C73 - Malignant neoplasm of thyroid gland Category: Medical Plan: 48-year-old female coming in today follow up of Hurthle cell carcinoma 4 cm diagnosed in 2005 status post total thyroidectomy, 100 mCi of I 131 radioactive iodine treatment in 2005. Very little initial information available with no pathology report in the system to determine initial TOMA risk would at least be intermediate risk of recurrence based on Hurthle cell pathology and AJCC stage I, now TOMA excellent response to therapy based on undetectable thyroglobulin tumor markers over the years and unremarkable neck ultrasounds.. Last thyroid ultrasound from May 2024 was unremarkable. Blood work from January 2024 showed TG less than 0.1, undetectable TG antibodies which are again reassuring. Given that she is 19 years out of her diagnosis, this is very reassuring especially once patients are hitting the 20 year thompson with no recurrence. Given excellent response to therapy, her TOMA goal is 0.5-2. Her last TSH from 11/12/2024 is at 2.17 which is just around the goals so I will keep her on the same dose of levothyroxine 250 mcg daily for now. Plan: -thyroglobulin markers pending from 11/12/2024, follow up on those -ordered TSH, free T4 TG and TG antibody levels to be done in September 2025 prior to follow up -continue levothyroxine 250 mcg daily -at this point given that she is almost 20 years without recurrence, we can space out the ultrasounds and maybe do 1 in the next 2-3 years. -follow up in September 2025 (2) Hypothyroidism: Code(s): E03.9 - Hypothyroidism, unspecified Category: Medical Qualifiers: Hypothyroidism type: postoperative Qualified Code(s): E89.0 - Postprocedural hypothyroidism Plan: Given excellent response to therapy, her TOMA goal is 0.5-2. Her TSH is at 2.17 most recently from 11/12/2024, which is just around the goals so I will keep her on the same dose of levothyroxine 250 mcg daily for now. Plan: -ordered TSH, free T4 to be done in September 2025 prior to follow up -continue levothyroxine 250 mcg daily Plan See above Orders: Orders Thyroid Stimulating Hormone 08/16/25 C73 - Malignant neoplasm of thyroid gland, E89.0 - Postprocedural hypothyroidism Thyroglobulin 08/16/25 C73 - Malignant neoplasm of thyroid gland, E89.0 - Postprocedural hypothyroidism Thyroglobulin Antibodies 08/16/25 C73 - Malignant neoplasm of thyroid gland, E89.0 - Postprocedural hypothyroidism Free T4 (Free Thyroxine) 08/16/25 C73 - Malignant neoplasm of thyroid gland, E89.0 - Postprocedural hypothyroidism Thyroglobulin Tumor Marker 08/16/25 C73 - Malignant neoplasm of thyroid gland, E89.0 - Postprocedural hypothyroidism Coding Level of Care Code Est Pt Level 4 (59337) Complex EM visit Add On G2211 Diagnoses Hurthle cell carcinoma of thyroid C73 Postoperative hypothyroidism E89.0 Hypothyroidism type: postoperative
--- OUTSIDE RECORDS SUMMARY | 2024-11-13 08:01 | XMS_ITS | Clinical Summary ---
Author Organization [facility] [address] [facility] Address [address], [place] Phone Care Team Providers Care Grove Worker Name Role Phone Maria Johnson MD Primary Care Provider [phone] Allergies No known active allergies Medications meclizine [...] DAILY 90 tablet 1 11/10/19 25 Active Mounjaro 7.5 mg/0.5 mL injectionIndic ations:Type 2 diabetes mellitus with other specified complication, without long-term current use of insulin ([facility] V24, [facility] V28) INJECT 1 PEN UNDER THE SKIN EVERY 7 (SEVEN) DAYS. 3 mL 2 11/13/19 25 Active losartan (COZAAR) 100 mg tablet Take 1 Tablet by mouth daily. 06/04/20 23 025 Discontinued Mounjaro 7.5 mg/0.5 mL injectionIndic ations:Type 2 diabetes mellitus with other specified complication, without long-term current use of insulin ([facility] V24, [facility] V28) INJECT 1 PEN UNDER THE SKIN EVERY 7 (SEVEN) DAYS. 3 mL 2 08/12/19 25 025 Discontinued(Re order) tirzepatide (Mounjaro) 7.5 mg/0.5 mL injectionIndic ations:Type 2 diabetes mellitus with other specified complication, without long-term current use of insulin ([facility] V24, [facility] V28) Inject 0.5 mL (7.5 mg total) under the skin every 7 (seven) days. 3 mL 2 11/11/19 25 025 Discontinued Active Problems Problem Noted Date Diagnosed Date Primary hypertension 02/21/2023 Elevated blood pressure reading 07/10/2021 Diabetes mellitus ([facility] V24, [facility] V28) 03/2019 Overview (04/29/2024): Hemoglobin A1c 6.6% on 03/28/2019. Hyperlipidemia 10/17/2017 Overview (04/29/2024): Total cholesterol 216, triglycerides 336, 04/18/2017 Migraines 04/18/2017 Thyroid cancer ([facility] V24, [facility] V28) 2016 Overview (04/29/2024): Right thyroid lobectomy 04/13/2005, left thyroid lobectomy 06/06/2005 4 cm right- sided Hurthle cell carcinoma ,100 ??Ci iodine-131. Varicose veins of both lower extremities 10/12/2 017 Encounters Date Type Department Care Team Description 09/01/2024 7:30 AM EST Office Visit Adult [address] [phone] Maria Johnson MD Type 2 diabetes mellitus with other specified complication, without long-term current use of insulin ([facility] V24, [facility] V28) (Primary Dx); Primary hypertension; Mixed hyperlipidemia [...] care for your loved ones. For example, children's lunchroom supervisor or elderly care for an older adult? [...] 3:30 PM EDT Office Visit Adult Medicine [facility] [address] [place] [address] Maria Johnson MD [address] [place] [id number] Health Maintenance Due Date Last Done Comments [...] complication, without long-term current use of insulin ([facility] V24, [facility] V28) HEMOGLOBIN A1C Routine 08/28/2024 1:59 PM EST Type 2 diabetes mellitus with other specified complication, without long-term current use of insulin ([facility] V24, [facility] V28) COMPREHENSIVE METABOLIC PANEL Routine 08/28/2024 1:59 PM EST Type 2 diabetes mellitus with other specified complication, without long-term current use of insulin ([facility] V24, [facility] V28) LIPID PANEL WITH REFLEX TO DIRECT LDL Routine 08/28/2024 1:59 PM EST Type 2 diabetes mellitus with other specified complication, without long-term current use of insulin ([facility] V24, [facility] V28) EXTERNAL MAMMOGRAM REPORT Routine 08/19/2024 10:24 AM EST DIABETES EYE EXAM Routine 09/12/2023 PAP SMEAR Routine 02/01/2023 from Last 3 Months or Most Recently Relevant to Health Maintenance Results * Microalbumin creatinine urine ratio (10/19/2024 4:45 PM EDT) Creatinine, Urine 57.0 mg/dL LAB CHEMISTRY METHOD 10/19/2024 7:[address] [facility] Microalb, Ur <5.0 0.0 - 29.0 mg/L LAB CHEMISTRY METHOD 10/19/2024 7:[address] [facility] Microalb/Creat Ratio <9 <30 mg/g creat LAB CHEMISTRY METHOD 10/19/2024 7:[address] [facility] Urine Urine specimen obtained by clean catch procedure / Unknown Non-blood Collection / Unknown 10/19/2024 4:45 PM EDT 10/19/2024 4:45 PM EDT us Maria Johnson MD LAB URINE ORDERABLES Final Resul t [facility] [address] [place] [address], [place] [phone] * (ABNORMAL) Lipid panel with reflex to direct LDL (08/28/2024 1:59 PM EST) Cholesterol 204(H) 0 - 200 mg/dL LAB CHEMISTRY METHOD 08/28/2024 5:[address] [facility] Triglycerides 303(H) 0 - 150 mg/dL LAB CHEMISTRY METHOD 08/28/2024 5:[address] [facility] HDL 43 >=40 mg/dL LAB CHEMISTRY METHOD 08/28/2024 5:[address] [facility] LDL Calculated 100 0 - 100 mg/dL LAB CHEMISTRY METHOD 08/28/2024 5:33 PM [facility] VLDL Cholesterol Dylan 60.6 mg/dL LAB CHEMISTRY METHOD 08/28/2024 5:33 PM [facility] Non HDL Chol. (LDL+VLDL) 161(H) <145 mg/dL LAB CHEMISTRY METHOD 08/28/2024 5:33 PM [facility] Chol/HDL Ratio 4.7(H) 0.0 - 4.4 LAB CHEMISTRY METHOD 08/28/2024 5:33 PM [facility] Blood Venous blood specimen / Unknown Venipuncture / Unknown 08/28/2024 1:59 PM EST 08/28/2024 1:59 PM EST us Maria Johnson MD LAB BLOOD ORDERABLES Final Resul t [facility] [address] [place] [address], * (ABNORMAL) Hemoglobin A1c (08/28/2024 1:59 PM EST) Hemoglobin A1C 6.8(H) <6.5 % LAB CHEMISTRY METHOD 08/28/2024 9:[address] [facility] Mean Bld Glu Estim. 148 mg/dL LAB CHEMISTRY METHOD 08/28/2024 9:[address] [facility] Blood Venous blood specimen / Unknown Venipuncture / Unknown 08/28/2024 1:59 PM EST 08/28/2024 1:59 PM EST Maria Johnson MD LAB BLOOD ORDERABLES Final Resul t [facility] [address] [place] [address], [place] [phone] * (ABNORMAL) Comprehensive metabolic panel (08/28/2024 1:59 PM EST) Sodium 135 133 - 145 mmol/L LAB CHEMISTRY METHOD 08/28/2024 5:30 PM [facility] Potassium 4.6 3.5 - 5.5 mmol/L LAB CHEMISTRY METHOD 08/28/2024 5:30 PM [facility] Chloride 102 96 - 110 mmol/L LAB CHEMISTRY METHOD 08/28/2024 5:30 PM [facility] CO2 25 21 - 32 mmol/L LAB CHEMISTRY METHOD 08/28/2024 5:30 PM [facility] Anion Gap 8 3 - 11 LAB CHEMISTRY METHOD 08/28/2024 5:30 PM [facility] Glucose 167(H) 70 - 100 mg/dL LAB CHEMISTRY METHOD 08/28/2024 5:30 PM [facility] BUN 25 5 - 25 mg/dL LAB CHEMISTRY METHOD 08/28/2024 5:30 PM [facility] Creatinine 1.05 0.50 - 1.10 mg/dL LAB CHEMISTRY METHOD 08/28/2024 5:30 PM [facility] eGFR 64 >=60 mL/min/1. 73m2 LAB CHEMISTRY METHOD 08/28/2024 5:30 PM [facility] Comment:Calculation based on the??Chronic Kidney Disease Epidemiology Collaboration (CKD-EPI) equation refit??without adjustment for race. BUN/Creatinine Ratio 23.8 LAB CHEMISTRY METHOD 08/28/2024 5:30 PM [facility] Calcium 10.0 8.5 - 10.5 mg/dL LAB CHEMISTRY METHOD 08/28/2024 5:30 PM [facility] AST (SGOT) 15 10 - 42 unit/L LAB CHEMISTRY METHOD 08/28/2024 5:30 PM [facility] ALT (SGPT) 33 10 - 60 unit/L LAB CHEMISTRY METHOD 08/28/2024 5:[address] [facility] Alkaline Phosphatase 89 42 - 121 unit/L LAB CHEMISTRY METHOD 08/28/2024 5:[address] [facility] Total Protein 7.8 6.0 - 8.0 g/dL LAB CHEMISTRY METHOD 08/28/2024 5:[address] [facility] Albumin 4.1 3.2 - 5.0 g/dL LAB CHEMISTRY METHOD 08/28/2024 5:30 PM [facility] Total Bilirubin 0.7 0.0 - 1.4 mg/dL LAB CHEMISTRY METHOD 08/28/2024 5:[address] [facility] Blood Venous blood specimen / Unknown Venipuncture / Unknown 08/28/2024 1:59 PM EST 08/28/2024 1:59 PM EST Maria Johnson MD LAB BLOOD ORDERABLES Final Resul t [facility] [address] [place] [address], * External Mammogram Report (08/19/2024 10:24 AM EST) Anatomical Region Laterality Modality Mammography Historical Provider IMG BI PROCEDURES Final R esult * Diabetes Eye Exam (09/12/2023) Pathologist [facility] Diabetes: Annual Retina Eye Exam Abstracted Historical Provider HEALTH MAINTENANCE Final Result * Pap Smear (02/01/2023) Pathologist [facility] Pap smear No Interpretation , Abstracted Historical Provider HEALTH MAINTENANCE Final Result from Last 3 Months or Most Recently Relevant to Health Maintenance Insurance [facility] Care Teams Grove Worker Relationship Specialty Start Date End Date Maria Johnson MD [address] [place] [address] [phone] PCP - General Internal Medicine 10/19/24
--- OUTSIDE RECORDS SUMMARY | 2024-11-13 08:01 | XMS_ITS | Patient Health Record ---
[facility] Address [address] [place] [address] Care Team Providers Care Residential Coordinator Name Role Phone Jhonatan Brock Primary Care Provider Unav ailable Black, Anum Unavailable [phone] Allergies Allergen (clinical drug ingredient) Drug/Non Drug [...] Problem Acquired hammer toe of right foot (9653631673197508 ) Other hammer toe(s) (acquired), right foot (M20.41) Active confirmed Problem Acquired hammer toe of left foot (6654312672855894 ) Other hammer toe(s) (acquired), left foot (M20.42) Active confirmed Problem Polyneuropathy due to type 2 diabetes mellitus (758443186) Type 2 diabetes mellitus with diabetic polyneuropathy (E11.42) Active confirmed Problem [id number] Venous insufficiency (I87.2) Active confirmed Plan Of Treatment Pending Test Test Name Order Date [id number] SKIN LESIONS, OVER 4 03/14/20 21 [id number] SKIN LESIONS, OVER 4 10/14/19 22 [id number] SKIN LESIONS, OVER 4 10/13/19 23 [id number] NAIL(S) 10/12/2022 [id number] NAIL(S) 10/13/2021 [id number] NAIL(S) 03/14/2021 Insurance Providers Payer Name Payer Address Payer Phone Subscriber Number Group Number Insured Name Patient Relationship to Insured Coverage Start Date Coverage End Date [facility] [address] [place] [id number] Pily Arias Self - patient is the insured Medical (General) History Medical History History ICD Code thyroid cancer type II diabetes Headaches Numbness Reflux ( GERD) Hyperlipidemia Hypothyroidism Surgical History Surgery Date(Month/Year) thyroidectomy total & 05/2006 breast reduction 2010 vein surgery 09/2021
== END 2024-11-13 08:16 | disposition home or self-care (01) ==
LOC: HO.ENCR 07:58
PROVIDERS: PCP Internal Medicine; Visit Provider Student in an Organized Health Care Education/Training Program
DX: C73 Malignant neoplasm of thyroid gland (principal); E89.0 Postprocedural hypothyroidism
CPT/HCPCS: 99214